=== PATIENT | female | born 1995 | race Caucasian/White ===

== ENCOUNTER 2021-09-10 13:15 | Inpatient (IN) | payer OTHER, SELFPAY ==
[2021-09-10] VITALS (73 sets, daily range): BP systolic 111–126; BP diastolic 53–86; PULSE 58–99; RESP 16–18; TEMP 36.4–37.1; O2SAT 94–100; BMI 31.8
--- NOTE | ~2021-09-10 | US_ITS ---
EXAMINATION: US OB limited w BPP DATE: 09/10/2021 14:15 INDICATION: Decelerations during third trimester TECHNIQUE: Real-time pelvic ultrasound was performed. The interpreting radiologist was not present fo r the study. COMPARISON: None. FINDINGS: There is a single living fetus in vertex presentation. The placenta is posterior/fundal. heart rate is 150 beats per minute (bpm). The amniotic fluid index is 11.7 cm which is normal Biophysical profile performed by the technologist: breathing (30 sec sustained breathing in 30 minutes): 2 out of 2 movement (3 gross body movements in 30 minutes): 2 out of 2 tone (one episode of [id number] limb movement): 2 out of 2 Amniotic fluid pocket (2 cm): 2 out of 2 Total score: 8 out of 8 IMPRESSION: 1. Single living fetus in vertex presentation. 2. Biophysical profile 8 out of 8. 3. Normal amniotic fluid index. Reviewed, dictated and finalized at location [facility]. [facility]
[2021-09-10 11:22] LABS: Basophils Percent Auto 0.3 % (0.2-1.2); Eosinophils Absolute Auto 0.3 K/mm3 (0-0.3); Hematocrit 31.9 % (37.0-47.0); Hemoglobin 10.6 g/dL (12.0-15.0); Immature Granulocyte Absolute 0.19 K/mm3 (0.00-0.031); Immature Granulocyte Percent A 1.4 % (0-0.5); Lymphocytes Absolute Auto 1.81 K/mm3 (0.9-3.2); Mean Corpuscular HGB Conc 33.2 g/dl (32-36); Mean Corpuscular Hemoglobin 31.5 pg (26-34); Mean Corpuscular Volume 94.9 fl (80-100); Mean Platelet Volume 11.9 fl (7.4-10.4); Monocytes Absolute Auto 1.2 K/mm3 (0.1-0.6); Monocytes Percent Auto 8.5 % (2.6-8.5); Neutrophils Absolute Auto 10.4 K/mm3 (1.3-6.7); Neutrophils Percent Auto 74.8 % (45.5-73.1); Platelet Count Result 210 k/mm3 (150-375); Red Blood Count 3.36 M/mm3 (4.2-5.4); Red Cell Distribution Width 14.9 % (11.5-14.5); White Blood Count 13.9 K/mm3 (4.5-10.0)
[2021-09-10 11:30] LABS: Creatinine Urine 67.9 mg/dL; Total Protein Urine Random 18 mg/dL; Ur Ttl Prot Creatinine Ratio 0.27 mg/mg (0-0.20)
[2021-09-10 11:32] LABS: Alanine Aminotransferase 11 U/L (4-35); Albumin Level 3.2 g/dL (3.5-5.1); Alkaline Phosphatase 104 U/L (38-126); Anion Gap 5 mmol/L (8-16); Aspartate Amino Transferase 18 U/L (14-36); Bilirubin,Total 0.2 mg/dL (0.2-1.3); Blood Urea Nitrogen 6 mg/dL (7-17); Calcium 9.2 mg/dL (8.4-10.2); Carbon Dioxide 21 mmol/L (22-30); Chloride 110 mmol/L (98-107); Estimated Glomerular Filt Rate > 60; Glucose 80 mg/dL (65-110); Sodium 136 mmol/L (137-145); Uric Acid 5.8 mg/dL (2.5-7.5)
[2021-09-10 11:36] LABS: Add Urine Microscopic? YES; Appearance Urine Cloudy (Clear); Bacteria Urine Trace /hpf; Bilirubin Urine Negative (Negative); Blood Urine Negative (Negative); Color Urine Yellow (Yellow); Glucose Urine UA Negative (Negative); Ketones Urine Negative (Negative); Leukocyte Esterase Ur Trace LEU/UL (NEGATIVE); Mucus Urine Rare /lpf; Nitrate Urine Negative (Negative); Protein Urine Negative (Negative); RBC Urine 0-2 /hpf (0-2); Specific Grav Ur 1.012 (1.001-1.035); Squamous Epithelial Cell Urine Few /hpf (Few); Urobilinogen Urine Negative mg/dL (<2.0)
[2021-09-10] MEDS: ACETAMINOPHEN 500 MG TABLET 1000 MG PO (12:13)
--- NOTE | 2021-09-10 13:15 | OBADM ---
This patient, Magda Childs, admitted to the OB room OB Post 115 for observation. Patient/family oriented to hospital policies and general routines including ID bracelet, bed and alarms, visiting hours, pain management, procedures, bathroom and other care routines, personal items, smoking policy, room service/diet, and visiting hours. Patient/Family are encouraged to report perceived risks to care and to ask questions if they do not understand what they are told or what they should do.
--- NOTE | 2021-09-10 17:57 | LDADM ---
This patient, Magda Childs, was admitted to Labor/Delivery/Recovery 102 on 09/10/21 at 17:57. Plans for labor, pain management and were discussed with patient. Patient/family oriented to hospital policies and general routines including ID bracelet, bed and alarms, visiting hours, pain management, procedures, bathroom and other care routines, personal items, smoking policy, room service/diet and guest tray routines, security routines, and visiting hours. Patient/Family are encouraged to report perceived risks to care and to ask questions if they do not understand what they are told or what they should do. See OBIX for further documentation.
--- NOTE | 2021-09-10 18:13 | PM.IMHP ---
H&P: HPI History of Present Illness Date/Time: 09/10/21 18:13 Chief Complaint: induction of labor Narrative: Magda is a G1 at 37.2 who presented for PI NAVA which was normal and BPs normalized. However, baby was noted to have 2 spontaneous prolonged decels, one to 60s and confirmed by RN at bedside. Other broken tracing, but strongly suspect decel again because pulse ox was on and it was not maternal. complicated by depression. Review of Systems Review of Systems: All systems reviewed & are unremarkable except as noted in HPI and below [facility] Family History Family History (Updated 08/30/21 @ 13:43 by Girish Sepulveda RN) Father Hypertension Chronic obstructive pulmonary disease Congestive heart failure Mother Hypertension Cervical cancer Social History Social History Substance use: current Last use: 08/27/21 Spiritual care concerns: No Meds Home Medications and Allergies Allergies Allergy/AdvReac Type Severity Reaction Status Date / Time No Known Allergies Allergy Verified 08/30/21 13:42 Vital Signs Vital Signs - 24 hr 09/10/21 11:07 09/10/21 11:15 09/10/21 11:30 Pulse Rate 73 82 75 Blood Pressure 123/79 124/86 123/85 Pulse Oximetry 09/10/21 11:45 09/10/21 12:00 09/10/21 13:02 Pulse Rate 73 69 Blood Pressure 120/82 124/82 Pulse Oximetry 100 09/10/21 13:07 09/10/21 14:03 09/10/21 14:08 Pulse Rate Blood Pressure Pulse Oximetry 100 100 100 09/10/21 14:13 09/10/21 14:18 09/10/21 14:23 Pulse Rate Blood Pressure Pulse Oximetry 100 100 99 09/10/21 14:24 09/10/21 14:30 09/10/21 14:35 Pulse Rate Blood Pressure Pulse Oximetry 100 100 100 09/10/21 14:40 09/10/21 14:45 09/10/21 14:50 Pulse Rate Blood Pressure Pulse Oximetry 100 100 100 09/10/21 14:55 09/10/21 15:00 09/10/21 15:05 Pulse Rate Blood Pressure Pulse Oximetry 100 100 100 09/10/21 15:09 09/10/21 15:14 09/10/21 15:19 Pulse Rate Blood Pressure Pulse Oximetry 100 100 100 09/10/21 15:24 09/10/21 15:28 09/10/21 15:29 Pulse Rate Blood Pressure Pulse Oximetry 100 100 100 09/10/21 15:32 09/10/21 15:35 09/10/21 15:39 Pulse Rate Blood Pressure Pulse Oximetry 100 100 99 09/10/21 15:41 09/10/21 15:46 09/10/21 15:51 Pulse Rate Blood Pressure Pulse Oximetry 100 100 99 09/10/21 15:54 09/10/21 15:59 09/10/21 16:04 Pulse Rate Blood Pressure Pulse Oximetry 99 99 98 09/10/21 16:09 09/10/21 16:14 09/10/21 16:19 Pulse Rate Blood Pressure Pulse Oximetry 98 98 97 09/10/21 16:24 09/10/21 16:29 09/10/21 16:34 Pulse Rate Blood Pressure Pulse Oximetry 97 97 97 09/10/21 16:39 09/10/21 16:44 09/10/21 16:49 Pulse Rate Blood Pressure Pulse Oximetry 97 96 96 09/10/21 16:54 09/10/21 16:59 09/10/21 17:04 Pulse Rate Blood Pressure Pulse Oximetry 95 94 99 09/10/21 17:09 09/10/21 17:14 09/10/21 17:19 Pulse Rate Blood Pressure Pulse Oximetry 99 99 99 09/10/21 17:24 09/10/21 17:29 09/10/21 17:34 Pulse Rate Blood Pressure Pulse Oximetry 99 97 99 09/10/21 17:39 09/10/21 17:44 09/10/21 17:49 Pulse Rate Blood Pressure Pulse Oximetry 99 99 99 09/10/21 17:54 09/10/21 17:59 Pulse Rate Blood Pressure Pulse Oximetry 99 99 Exam Const: General: no acute distress Resp: Effort & Inspection: normal respiratory effort Auscultation: clear to auscultation bilaterally Cardio: Rate: regular rate Rhythm: regular rhythm GI: GI Palp: Yes Soft to palpation Extrem: General: normal to inspection H&P: Results Labs Labs: Short CBC 09/10/21 Range/Units 11:10 WBC 13.9 H (4.5-10.0) K/mm3 Hgb 10.6 L (12.0-15.0) g/dL Hct 31.9 L (37.0-47.0) % Plt Count 210 (150-375) k/mm3 [facility] 09/10/21 11:10 Sodium 136 L Potassium 4.0 Chloride 110 H Carbon Dioxide 21 L BUN 6 L Creatinine 0.60 L Glucose
--- NOTE | 2021-09-10 18:57 | WPDANESEPP ---
Anes - Eval Pre Procedure Procedure: Labor epidural Date/Time: 09/10/21 18:57 Pre Op Diagnosis: Abd pain with contractions Patient Data Age: 26 Gender: F Height: 1.6 m Weight: 81.5 kg Last Vital Signs Pulse 69 09/10/21 12:00 BP 124/82 09/10/21 12:00 Pulse Ox 100 09/10/21 18:33 Allergies Allergy/AdvReac Type Severity Reaction Status Date / Time No Known Allergies Allergy Verified 08/30/21 13:42 Laboratory Tests 09/10/21 09/10/21 09/10/21 11:10 11:10 11:10 WBC 13.9 K/mm3 H K/mm3 (4.5-10.0) RBC 3.36 M/mm3 L M/mm3 (4.2-5.4) Hgb 10.6 g/dL L g/dL (12.0-15.0) Hct 31.9 % L % (37.0-47.0) MCV 94.9 fl fl (80-100) MCH 31.5 pg pg (26-34) MCHC 33.2 g/dl g/dl (32-36) RDW 14.9 % H % (11.5-14.5) Plt Count 210 k/mm3 k/mm3 (150-375) MPV 11.9 fl H fl (7.4-10.4) Immature Gran % (Auto) 1.4 % H % (0-0.5) Neut % (Auto) 74.8 % H % (45.5-73.1) Lymph % (Auto) 13.0 % L % (18.3-44.2) [place] % (Auto) 8.5 % % (2.6-8.5) Eos % (Auto) 2.0 % % (0-4.4) Baso % (Auto) 0.3 % % (0.2-1.2) Lymph # (Auto) 1.81 K/mm3 K/mm3 (0.9-3.2) [place] # (Auto) 1.2 K/mm3 H K/mm3 (0.1-0.6) Eos # (Auto) 0.3 K/mm3 K/mm3 (0-0.3) Baso # (Auto) 0.0 K/mm3 K/mm3 (0.0-0.1) Abs Immat Gran (auto) 0.19 K/mm3 H K/mm3 (0.00-0.031) Absolute Neuts (auto) 10.4 K/mm3 H K/mm3 (1.3-6.7) Absolute Nucleated RBC 0.0 K/mm3 K/mm3 (0.0-0.012) Nucleated RBC % 0.0 % % (0.0-0.2) Sodium Potassium Chloride Carbon Dioxide Anion Gap BUN Creatinine Estim Creat Clear Calc Estimated GFR Glucose Uric Acid Calcium Total Bilirubin AST ALT Alkaline Phosphatase Total Protein Albumin Urine Color Yellow (Yellow) Urine Appearance Cloudy H (Clear) Urine pH 7.0 (5.0-9.0) Ur Specific [place] 1.012 (1.001-1.035) Urine Protein Negative mg/dL mg/dL (Negative) Urine Glucose (UA) Negative mg/dL mg/dL (Negative) Urine Ketones Negative mg/dL mg/dL (Negative) Ur Blood (Man) Negative (Negative) Urine Nitrate Negative (Negative) Urine Bilirubin Negative (Negative) Urine Urobilinogen Negative mg/dL mg/dL (<2.0) Ur Leukocyte Esterase Trace VARUN/UL H VARUN/UL (NEGATIVE) Urine RBC 0-2 /hpf /hpf (0-2) Urine WBC 4-6 /hpf H /hpf (0-3) Ur Squamous Epith Cells Few /hpf /hpf (Few) Urine Bacteria Trace /hpf /hpf Urine Mucus Rare /lpf /lpf U Random Total Protein 18 mg/dL mg/dL Urine Creatinine 67.9 mg/dL mg/dL Protein/Creat Ratio 2 0.27 mg/mg H mg/mg (0-0.20) 09/10/21 11:10 WBC RBC Hgb Hct MCV MCH MCHC RDW Plt Count MPV Immature Gran % (Auto) Neut % (Auto) Lymph % (Auto) [place] % (Auto) Eos % (Auto) Baso % (Auto) Lymph # (Auto) [place] # (Auto) Eos # (Auto) Baso # (Auto) Abs Immat Gran (auto) Absolute Neuts (auto) Absolute Nucleated RBC Nucleated RBC % Sodium 136 mmol/L L mmol/L (137-145) Potassium 4.0 mmol/L mmol/L (3.4-5.0) Chloride 110 mmol/L H mmol/L (98-107) Carbon Dioxide 21 mmol/L L mmol/L (22-30) Anion Gap 5 mmol/L L mmol/L (8-16) BUN 6 mg/dL L mg/dL (7-17) Creatinine 0.60 mg/dL L mg/dL (0.7-1.0) Estim Creat Clear Calc Not Reportable Estimated GFR > 60 (59 - ) Glucose 80
[2021-09-10] MEDS: DINOPROSTONE 10 MG VAG INSERT VAGINAL (19:47)
[2021-09-10] MEDS: ZOLPIDEM TARTRATE (*CRX) 5 MG TABLET PO (22:01)
[2021-09-10 22:32] LABS: Amphetamine Screen Urine Negative (Negative); Barbiturate Screen Urine Negative (Negative); Benzodiazepines Screen Urine Negative (Negative); Cannabinoid Screen Urine Negative (Negative); Cocaine Screen Urine Negative (Negative); Methadone Screen Urine Negative (Negative); Opiate Screen Urine Negative (Negative); Phencyclidine Screen Urine Negative (Negative)
[2021-09-11] VITALS (185 sets, daily range): BP systolic 55–144; BP diastolic 35–98; PULSE 60–135; RESP 16–18; TEMP 36.8–38.1; O2SAT 82–100
[2021-09-11 07:12] LABS: Rapid Plasma Reagin Non-Reactive (NonReactive)
--- NOTE | 2021-09-11 08:40 | WPDOBADMIT ---
Obstetrics - Admit Note Admission Note: 26 y/o G1 initially sent over for ghtn evaluation and prior to discharge had a 4-5 minute decel. Decision was made to keep overnight for evaluation. Yesterday evening she had another deceleration and Dr Green made the decision to admit for induction of labor. Cervidil was done overnight and now pitocin will be started per protocol. Pt declines arom at this time and would like to wait a few hours. record reviewed. No pertinent additions to the history and/or any subsequent changes in the physical findings that are not consistent with the expected course of the were found. Additions to the history and/or subsequent changes in the physical findings follow. None.
[2021-09-11] MEDS: OXYTOCIN 30 UNITS/NS 500 ML 30 UNITS/500 ML BAG IV CONT (09:36)
[2021-09-11] MEDS: LACTATED RINGERS 1,000 ML 125 ML IV CONT ×3 (09:36→18:18)
--- NOTE | 2021-09-11 13:02 | PM.OBPNLAB ---
Pain Control Date/time seen: 09/11/21 13:02 VSS Cervix /-2 AROM moderate amount of clear odorless fluid
--- NOTE | 2021-09-11 13:02 | PM.IMHP ---
H&P: HPI History of Present Illness Date/Time: 09/11/21 13:02 Chief Complaint: Elevated blood pressure Review of Systems Review of Systems: All systems reviewed & are unremarkable except as noted in HPI and below Constitutional: Constitutional: Reports as per HPI and Reports no additional constitutional complaints Eyes: Eyes: Reports as per HPI ENT: Reports system reviewed and no additional complaints, except as documented Cardiovascular: Cardiovascular: Reports as per HPI Respiratory: Respiratory: Reports as per HPI Gastrointestinal: Gastrointestinal: Reports as per HPI Genitourinary: Genitourinary: Reports no additional female genitourinary complaints Musculoskeletal: Musculoskeletal: Reports no additional musculoskeletal complaints Integumentary/Breasts: Skin/Breast: Reports system reviewed and no additional complaints, except as docu Neurologic: Reports system reviewed and no additional complaints, except as documented Psychiatric: Psychiatric: Reports no additional psychiatric complaints Endocrine: Endocrine: Reports no additional endocrine complaints Hematologic/Lymphatic: Hematologic/Lymphatic: Reports no additional hematologic/lymphatic complaints Allergic/Immunologic: Allergic/Immunologic: Reports no additional allergic/immunologic complaints [facility] Past Medical History Medical History Overweight (BMI 25.0-29.9) and not yet delivered Family History Family History Father Hypertension Chronic obstructive pulmonary disease Congestive heart failure Mother Hypertension Cervical cancer Social History Social History Smoking packs per day: 0.5 Smoking cigarettes per day: 10.0 Years smoked: 12 Smoking pack-years: 6.00 Smoking status: Current every day smoker Tobacco type: cigarettes Substance use: current Spiritual care concerns: No Meds Home Medications and Allergies Home Medications Medication Instructions Recorded Confirmed Type ferrous sulfate 28 mg PO DAILY 09/10/21 09/10/21 History vit no.[id number] 1 tablet PO DAILY 09/10/21 09/10/21 History [Classic ] Allergies Allergy/AdvReac Type Severity Reaction Status Date / Time No Known Allergies Allergy Verified 08/30/21 13:42 Vital Signs Vital Signs - 24 hr 09/10/21 13:07 09/10/21 14:03 09/10/21 14:08 Temperature Pulse Rate Respiratory Rate Blood Pressure Pulse Oximetry 100 100 100 09/10/21 14:13 09/10/21 14:18 09/10/21 14:23 Temperature Pulse Rate Respiratory Rate Blood Pressure Pulse Oximetry 100 100 99 09/10/21 14:24 09/10/21 14:30 09/10/21 14:35 Temperature Pulse Rate Respiratory Rate Blood Pressure Pulse Oximetry 100 100 100 09/10/21 14:40 09/10/21 14:45 09/10/21 14:50 Temperature Pulse Rate Respiratory Rate Blood Pressure Pulse Oximetry 100 100 100 09/10/21 14:55 09/10/21 15:00 09/10/21 15:05 Temperature Pulse Rate Respiratory Rate Blood Pressure Pulse Oximetry 100 100 100 09/10/21 15:09 09/10/21 15:14 09/10/21 15:19 Temperature Pulse Rate Respiratory Rate Blood Pressure Pulse Oximetry 100 100 100 09/10/21 15:24 09/10/21 15:28 09/10/21 15:29 Temperature Pulse Rate Respiratory Rate Blood Pressure Pulse Oximetry 100 100 100 09/10/21 15:32 09/10/21 15:35 09/10/21 15:39 Temperature Pulse Rate Respiratory Rate Blood Pressure Pulse Oximetry 100 100 99 09/10/21 15:41 09/10/21 15:46 09/10/21 15:51 Temperature Pulse Rate Respiratory Rate Blood Pressure Pulse Oximetry 100 100 99 09/10/21 15:54 09/10/21 15:59 09/10/21 16:04 Temperature Pulse Rate Respiratory Rate Blood Pressure Pulse Oximetry 99 99 98 09/10/21 16
[2021-09-11] MEDS: fentaNYL CITRATE INJ (*CRX) 100 MCG/2 ML VIAL IV PUSH (14:07)
[2021-09-11] MEDS: AMPICILLIN 2 GM/NS 100 ML 2 GM/100 ML BAG IVPB (22:51)
[2021-09-12] VITALS (48 sets, daily range): BP systolic 110–149; BP diastolic 65–100; PULSE 67–112; RESP 16–18; TEMP 36.4–37.6; O2SAT 96–100
[2021-09-12] MEDS: LACTATED RINGERS 1,000 ML 125 ML IV CONT (00:27)
--- NOTE | 2021-09-12 02:44 | P.PCNOB_ITS ---
OB - Delivery Note Procedure Delivery date: 09/12/21 Procedure: Induction method: per pitocin protocol and per cervidil protocol Delivery monitor: external FHT, external uterine, internal FHT and internal uterine Route of delivery: Episiotomy description: None Laceration Description: Labial (1st degee right labial) Quantitative Blood Loss (ml): 128 Anesthesia type: Epidural Narrative: Mother and baby in stable condition. Cord gasses collected and handed off to staff. [place] Baby Date of : 09/12/21 Time of : 02:23 Weeks of gestation at delivery: 37 Weight (pounds): 5 Weight (ounces): 13 presentation: vertex position: Right Occiput Anterior Placenta delivery description: Spontaneous cord vessel description: Nuchal Cord (Unable to reduce. Delivered through.) score one minute: 8 score five minutes: 9
[2021-09-12] MEDS: OXYTOCIN 30 UNITS/NS 500 ML 30 UNITS/500 ML BAG 125 UNITS IV CONT (03:03)
[2021-09-12] MEDS: IBUPROFEN 600 MG TABLET PO ×2 (03:51→16:43)
[2021-09-12] MEDS: WITCH HAZEL 40 PADS 1 PAD TOPICAL (04:22)
[2021-09-12] MEDS: BENZOCAINE 20% AER SPR (*SP) 56 GM CAN 1 SPRAY TOPICAL (04:22)
--- NOTE | 2021-09-12 05:10 | PC.NURSE ---
0355 - Spoke with [facility] regarding order for Cosyntropin; no new orders received, will obtain orders from Dr Alan in am.
[2021-09-12] MEDS: COSYNTROPIN 0.25 MG/ML VIAL 1 MG IV PUSH (07:39)
[2021-09-12] MEDS: MULTIVIT/MIN/PREN/FOL AC/IRON TABLET 1 TAB PO (07:40)
[2021-09-12] MEDS: ACETAMINOPHEN 325 MG TABLET 650 MG PO ×2 (07:55→20:08)
--- NOTE | 2021-09-12 10:55 | PC.NURSE ---
Mother called out for assist with feeding. Mother reports infant is sleepy and makes eager attempts to latch with good bursts of nursing. Mother used a nipple shield for the first few feedings. Discussed establishing in the late infant may be more difficult due to their immaturity, infant may be less alert, have less stamina, and have greater difficulty with latch, suck, and swallow. ?s feeding may impact mother?s milk supply, pumping may need to be initiated until milk supply is well established and is able to effectively breastfeed without supplementation. Infant is able to freely thrust tongue past gum ridge and flange both lips. Skin is intact on both nipples, no redness and bruising noted. Nipple care reviewed of lanolin after feedings, warm compresses as needed. Discussed nipple shield use and how shield may assist with latch. Reviewed nipple shield precautions and possible complications. Instructions given on application and cleaning of shield. Patient able to return demonstration on proper application of shield. Discussed the need to initiate pumping if continues to nurse with the shield. Patient verbalizes understanding. Reviewed feeding cues, frequencies, duration of feedings, feeding elimination flow sheet, and signs of adequate intake. Demonstrated stimulation techniques to wake for feeding. Assisted with infant to breast without shield. Reviewed positioning/alignment in cross cradle, holding breast in ?U? hold and guided asymmetrical latch on. Reviewed rational for each. Infant was unable to latch correctly using nipple shield. Once latched made a weak effort to suckle with a few short draws and then fell asleep with nipple in mouth. stimulated to wake with to return to breast with same results. Discussed the difference of effective vs ineffective feeding. Reviewed is latching with good burst of suckling, he is not feeding consistently with adequate milk transfer at this time and continues to need to be supplement after . Feeding options discussed, Feeding Plan is for mother to put infant to breast each feeding for up to 15 minutes, then pace feed supplement 20 mls and pump for 10-15 minutes. Parents are comfortable with supplementation and pumping. If infant begins to nurse effectively with long draws and frequent swallowing noted, may decrease supplementation and discontinue pumping. Suggested mother have LC ship surveyor observe feeding before discontinuing supplementation. Discussed increasing supplementation as infant requires to satisfactions. Reviewed paced feeding and suggested to stop when is satisfied, as long as infant is having required output. With increased supplementation infant may not want to feed for 4 hours. Mother will continue to pump on feeding schedule and will increase session to 20 minutes if pumping every 4 hours.
--- NOTE | 2021-09-12 11:25 | PC.NURSE ---
Mother wishes to use her Ameda pump from home. Instructions given on breast pump care and usage, pumping schedule, nipple care, and collection and storage of breast milk. Encouraged [id number], breast massage and manual expression to stimulate supply. Assessed patient for correct flange size, placement and draw. Patient verbalizes and demonstrates understanding of instructions. Discussed colostrum vs milk supply and mother may not see more than a few drops the first few days, milk should transition in by day 3 and she may see more volume pumped per session.
[2021-09-12] MEDS: BENZOCAINE/MENTHOL (*BKC) 18 EA LOZENGE 1 LOZENGE PO (21:31)
[2021-09-12] MEDS: ALBUTEROL SULFATE (*SP) AEROSOL 1 PUFF 2 PUFF INHALATION (21:40)
[2021-09-13 05:14] LABS: Hemoglobin 8.7 g/dL (12.0-15.0)
[2021-09-13] MEDS: DOCUSATE SODIUM 100 MG CAPSULE PO ×2 (07:40→17:05)
[2021-09-13] MEDS: IBUPROFEN 600 MG TABLET PO ×2 (07:40→13:48)
[2021-09-13] MEDS: POLYSACCHARIDE IRON COMPLEX 150 MG CAPSULE PO ×2 (07:40→17:05)
[2021-09-13] MEDS: MULTIVIT/MIN/PREN/FOL AC/IRON TABLET 1 TAB PO (07:40)
[2021-09-13 08:35] VITALS: BP 120/84; PULSE 74; RESP 18; TEMP 37.6; O2SAT 99
--- NOTE | 2021-09-13 08:46 | PM.OBPNVD ---
OB - PN: Subj Subjective Date/time seen: 09/13/21 08:46 Patient comments: no complaints, pain well controlled, incisional pain, tolerating diet and flatus present OB - PN: Obj Data Labs CBC & Chem 7: 09/13/21 04:27 09/10/21 11:10 Labs: Laboratory Results - last 24 hr 09/13/21 04:27 Hgb 8.7 L Hct 26.0 L OB - PN A/P Plan day: 1 Plan: routine care Comments: No problems, routine care Time Spent With Patient Time: Total time spent is greater than 50% in coordination of care (as documented) at patient's floor/unit and/or counseling patient: Exam Const: General: comfortable, no acute distress and alert Resp: Effort & Inspection: normal respiratory effort Auscultation: no crackles, no rales and no rhonchi Cardio: Rate: regular rate Heart sounds: no click, no murmurs and no rubs GI: Inspection: non-distended GI Palp: No Tenderness to palpation present (GI) Auscultation: normal bowel sounds Other: Incision - CDI Extrem: General: normal to inspection, no pedal edema and no calf tenderness
--- NOTE | 2021-09-13 10:35 | PCCCNOTE ---
Care Coordination Note: Met with pt. and significant other Bennie. This is pt.'s first child. She lives at home alone. She has a supportive family including her parents and siblings. She has all necessary equipment for the baby including a crib, car seat, clothing, and bottles. 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 Pt. reports she will have to get some formula at discharge as she was anticipating breast feeding however she has not produced much milk. She is current with [facility] services and has information to call them at discharge. Pt. does not have a PMD, she is aware of how to obtain one. Encouraged pt. to also look into the [place] [employer] website as assistance. Pt. denies any further resources. Bennie will transport home.
[2021-09-13] MEDS: ACETAMINOPHEN 325 MG TABLET 650 MG PO (11:21)
--- NOTE | 2021-09-13 12:30 | PC.NURSE ---
Consult with pt., mother wishes to pump and bottle feed. Reviewed breast pump care and usage, pumping schedule, nipple care, and collection and storage of breast milk. Encouraged [id number], breast massage and manual expression to stimulate supply. Assessed patient for correct flange size, placement and draw. Patient verbalizes and demonstrates understanding of instructions. Discussed colostrum vs milk supply and mother may not see more than a few drops the first few days, milk should transition in by day 3 and she may see more volume pumped per session. Mother is feeding as required and waking infant to feed if needed. Mother states she feels confident to continue with current plan to pump and bottle feed EBM at home. Discussed to feed infant at least 20 mls per feeding, increasing supplementation as requires to satisfactions. Reviewed paced feeding and suggested to stop when is satisfied, as long as infant is having required output. With increased supplementation may not want to feed for 4 hours. Mother will continue to pump on feeding schedule and will increase session to 20 minutes if pumping every 4 hours. Reviewed transition to breast milk, signs of adequate intake, and engorgement/relief. Instructed to call ICP if intake/output less than required. Reviewed regular medications mother is taking. Information provided per Roxanne. Reviewed community resources on the [facility] website and in the Mom/Baby guide. Information on outpatient services provided. Mother has no further questions at this time.
[2021-09-13] MEDS: ALBUTEROL SULFATE (*SP) AEROSOL 1 PUFF 2 PUFF INHALATION ×2 (15:15→21:22)
--- NOTE | 2021-09-13 17:36 | PC.NURSE ---
Patient viewed the discharge video Mother & Baby Care, The First Two Weeks . Patient was given the opportunity and encouraged to ask questions. Patient verbalized understanding of information shared and has been given the mother/baby guide for home reference.
[2021-09-13 19:35] VITALS: BP 130/88; PULSE 65; RESP 16; TEMP 36.9; O2SAT 100
[2021-09-14] MEDS: ACETAMINOPHEN 325 MG TABLET 650 MG PO (05:47)
--- NOTE | 2021-09-14 08:30 | PC.NURSE ---
PT introductions made and plan of care discussed per post , pain management, breast pumping, bottle feeding, daily care activities and pending discharge to home. PT received such instructions per one to one discussion, mom baby care guide and demonstrations this shift. PT and significant other both recipients of such instructions and no barriers to learning identified at this time. PT verbalized understanding of such care.
[2021-09-14] MEDS: MULTIVIT/MIN/PREN/FOL AC/IRON TABLET 1 TAB PO (09:06)
[2021-09-14] MEDS: DOCUSATE SODIUM 100 MG CAPSULE PO (09:06)
[2021-09-14] MEDS: POLYSACCHARIDE IRON COMPLEX 150 MG CAPSULE PO (09:07)
[2021-09-14] MEDS: IBUPROFEN 600 MG TABLET PO (09:07)
[2021-09-14 09:30] VITALS: BP 130/87; PULSE 67; RESP 18; TEMP 37.1; O2SAT 100
--- NOTE | 2021-09-14 09:31 | PM.OBPNVD ---
OB - PN: Subj Subjective Date/time seen: 09/14/21 09:31 Patient comments: no complaints baby status: doing well [place] feeding status: breast and bottle feeding OB - PN: Obj Data Labs CBC & Chem 7: 09/13/21 04:27 09/10/21 11:10 OB - PN A/P Plan day: 2 Plan: routine care and discharge home Time Spent With Patient Time: Total time spent is greater than 50% in coordination of care (as documented) at patient's floor/unit and/or counseling patient: Time with patient: less than 15 minutes Exam Narrative: NAD abdomen soft, nontender, fundus firm below the umbilicus Extremities nontender, 1+ edema
--- NOTE | 2021-09-14 09:37 | PM.OBDSVD ---
DS: Admitting Diagnosis Discharge Date 09/14/21 Admitting Diagnosis IUP 37 weeks, decelerations DS: Discharge Diagnosis Discharge Diagnosis (1) , delivered: Code(s): O80 - Encounter for full-term uncomplicated delivery Status: Acute OB - DS: Summary Hospital Course Hospital Course: Patient was admitted for decelerations and term and had an uncomplicated induction and course. OB Procedures : Ultrasound OB Procedures Intrapartum: Spontaneous Vag Delivery OB Procedures: : None Peripartum Data Infant Delivery Method: Natural Vaginal Status at Discharge Functional status at discharge: independent ambulation Time Spent with Patient Time attestation: Total time spent providing and/or coordinating discharge services: DS: Data Data Completed and Pending Completed studies during hospitalization: Pending at discharge 09/12/21 02:31 Surgical [PTH] Routine Discharge Plan Discharge Attending physician on discharge: Anabela Green Discharging Clinician: Anabela Green Anticipated Discharge Date/Time: 09/14/21 11:00 Patient Disposition: Home, Self-Care Activity: may shower and pelvic rest Diet: regular Patient Instructions: Antibiotic Form Stand Alone Forms: General Discharge Information Follow-up/Referrals: Jese Hidalgo MD [Physician] - 4 Weeks Discharge Medications: Continued ferrous sulfate 28 mg iron Tablet 28 mg PO DAILY RF: 0 Classic 28 mg iron- 800 mcg Tablet 1 tablet PO DAILY RF: 0 Date of admission: 09/10/21 17:57 Primary Care Provider: PHYSICIAN,SURGICAL ELASTIC KNITTER Admitting Provider: Jese Hidalgo Attending physician on admission: Jese Hidalgo Condition: Stable
--- NOTE | 2021-09-14 13:30 | PC.NURSE ---
PT received discharge instructions per protocol and verbalized understanding of such care.
--- NOTE | 2021-09-14 14:00 | PC.NURSE ---
PT discharged to home ambulatory accompanied by significant other and to waiting car. follow up appts confirmed
== END 2021-09-14 14:00 | disposition home or self-care (01) | DRG 560 ==
LOC: ANHOBOP 13:18 → ANHOBPP 13:18 → ANHLDR 18:59 → ANHOB2 09-14 09:36 → ANHLDR 09-16 10:39 → ANHOB2 09-16 10:39
PROVIDERS: Advanced Practice Midwife; Admitting Provider Obstetrics & Gynecology; Visit Provider Obstetrics & Gynecology
DX: O75.2 Pyrexia during labor, not elsewhere classified (principal); O76 Abnormality in fetal heart rate and rhythm complicating labor and delivery; O99.334 Smoking (tobacco) complicating childbirth; F17.210 Nicotine dependence, cigarettes, uncomplicated; O69.1XX0 Labor and delivery complicated by cord around neck, with compression, not applicable or unspecified; O70.0 First degree perineal laceration during delivery; Z3A.37 37 weeks gestation of pregnancy; Z37.0 Single live birth
CPT/HCPCS: 36415; 76815; 76819; 80053; 80307; 81001; 82570; 84156; 84550; 85014; 85018; 85025; 86592; 86850; 86900; 86901; 87086; 88307; 94640; A9270; J0131; J0290; J0834; J2590; J2795; J3010; J7120

== ENCOUNTER 2023-10-28 00:41 | Observation (INO) | payer OTHER, MEDICAID, SELFPAY ==
[2023-10-28] VITALS (7 sets, daily range): BP systolic 79–117; BP diastolic 53–72; PULSE 72–83; BMI 32.8
[2023-10-28 01:32] LABS: Appearance Urine Cloudy (Clear); Bacteria Urine 1+ /hpf; Bilirubin Urine Negative (Negative); Blood Urine Negative (Negative); Color Urine Yellow (Yellow); Glucose Urine UA Negative (Negative); Ketones Urine Negative (Negative); Leukocyte Esterase Ur 1+ LEU/UL (Negative); Nitrate Urine Negative (Negative); Non Pathogenic Casts 0-2; Protein Urine Negative (Negative); RBC Urine 0-2 /hpf (0-2); Specific Grav Ur 1.012 (1.001-1.035); Squamous Epithelial Cell Urine Few /hpf (Few); Urobilinogen Urine 0.2 mg/dL (<2.0); pH Urine 6.5 (5.0-9.0)
--- NOTE | 2023-10-28 01:44 | PC.NURSE ---
[address] Currie at this time reported on maternal and status. Orders to call back when urine results were back and to get an update.
[2023-10-28 01:52] LABS: Add Urine Microscopic? YES
--- NOTE | 2023-10-28 02:28 | PC.NURSE ---
[address] Currie at this time. Reported on maternal and status. Orders received to give this patient a 500 bolus of LR and give this patient Keflex at this time. She wants the patient to go home with a 5day perscription of Keflex q6h 250mg. orders recieved to draw a CBC on this patinet at this time as well.
[2023-10-28] MEDS: LACTATED RINGERS 500 ML 999 ML IV CONT (02:50)
[2023-10-28] MEDS: CEPHALEXIN 250 MG CAPSULE PO (02:51)
[2023-10-28 03:01] LABS: Hematocrit 32.7 % (37.0-47.0); Hemoglobin 10.6 g/dL (12.0-15.0); Mean Corpuscular HGB Conc 32.4 g/dl (32-36); Mean Corpuscular Hemoglobin 30.9 pg (26-34); Mean Corpuscular Volume 95.3 fl (80-100); Mean Platelet Volume 10.8 fl (7.4-10.4); Platelet Count Result 254 k/mm3 (150-375); Red Blood Count 3.43 M/mm3 (4.2-5.4); Red Cell Distribution Width 13.5 % (11.5-14.5); White Blood Count 13.7 K/mm3 (4.5-10.0)
--- NOTE | 2023-10-28 03:47 | PC.NURSE ---
0337 This Rn talked to Dr. Currie at this time. Reported on maternal and status. orders given to dc this patient at this time
--- NOTE | 2023-10-28 03:59 | PC.NURSE ---
0141 Patient came to OB today because she was feeling tightening in her hips and belly. She said they felt like contractions but nothign to bad. Patient also felt some pain in her back when she voided. Patient gave a urine sample at this time and patient was hooked up to the monitors. patient stated she only drank less then half of a waterbottle today and drank 2-3 44oz cups of soda today. Patient given water at this time .
--- NOTE | 2023-10-30 10:44 | PM.OBTRLD ---
OB - Triage/Final Diagnosis Visit Information Comments/Additional reasons for admission: I have assessed the risk for this patient, Magda Childs, and determined that she would benefit from observation care. Evaluation Laboratory results: Laboratory Tests 10/28/23 10/28/23 01:21 02:34 WBC 13.7 H RBC 3.43 L Hgb 10.6 L Hct 32.7 L MCV 95.3 MCH 30.9 MCHC 32.4 RDW 13.5 Plt Count 254 MPV 10.8 H Urine Color Yellow Urine Appearance Cloudy H Urine pH 6.5 Ur Specific [place] 1.012 Urine Protein Negative Urine Glucose (UA) Negative Urine Ketones Negative Ur Blood (Man) Negative Urine Nitrate Negative Urine Bilirubin Negative Urine Urobilinogen 0.2 Leukocyte Esterase Rfl 1+ H Urine RBC 0-2 Urine WBC 11-20 H Ur Squamous Epith Cells Few Urine Bacteria 1+ H Urine Casts 0-2 Final Diagnosis (1) Back pain: Code(s): M54.9 - Dorsalgia, unspecified Status: Acute (2) UTI (urinary tract infection) during : Code(s): O23.40 - Unspecified infection of urinary tract in , unspecified trimester Status: Acute
== END 2023-10-28 03:50 | disposition home or self-care (01) ==
PROVIDERS: Admitting Provider Obstetrics & Gynecology; Visit Provider Obstetrics & Gynecology
DX: O99.891 Other specified diseases and conditions complicating pregnancy (principal); O23.43 Unspecified infection of urinary tract in pregnancy, third trimester; Z3A.33 33 weeks gestation of pregnancy
CPT/HCPCS: 36415; 59025; 81001; 85027; 87086; 87088; A9270; G0378; G0379; J7120

== ENCOUNTER 2023-10-29 22:52 | Observation (INO) | payer OTHER, MEDICAID, SELFPAY ==
[2023-10-29 23:05] VITALS: BMI 32.0
[2023-10-29 23:33] VITALS: BP 117/72; PULSE 103
[2023-10-29 23:40] VITALS: BP 117/71; PULSE 95; TEMP 37.1
--- NOTE | 2023-10-29 23:44 | PC.NURSE ---
MD called and made aware of pts arrival to unit. RN reported pts complaints of contractions (rating 7/10) that are 2-4 minutes apart, as well as SVE of closed, cat I tracing. RN advised MD that patient had been given abx for a UTI and currently reports that she is not taking the abx. Orders received. Pt ok to discharge after administration of medication and cessation of contractions.
[2023-10-29 23:50] VITALS: BP 115/70; PULSE 92
[2023-10-30] MEDS: NIFEdipine 30 MG TAB.ER.24 PO ×2 (00:09→01:48)
[2023-10-30] MEDS: NIFEdipine 10 MG CAPSULE PO (00:09)
[2023-10-30] MEDS: LACTATED RINGERS 500 ML 999 ML IV CONT (00:19)
--- NOTE | 2023-10-30 02:43 | PC.NURSE ---
[id number] TOCO 3-5.5 min 47-104 mild intensity soft to palpation FHR 135, accelerations present decelerations absent [id number] TOCO 4 min 57-87 seconds mild intensity soft to palpation FHR 135, accelerations present decelerations absent
--- NOTE | 2023-11-30 13:40 | PM.OBTRLD ---
OB - Triage/Final Diagnosis Visit Information Comments/Additional reasons for admission: I have assessed the risk for this patient, Magda Childs, and determined that she would benefit from observation care. Final Diagnosis (1) False labor: Code(s): O47.9 - False labor, unspecified Status: Acute
== END 2023-10-30 02:35 | disposition home or self-care (01) ==
PROVIDERS: Admitting Provider Obstetrics & Gynecology; Visit Provider Obstetrics & Gynecology
DX: O47.03 False labor before 37 completed weeks of gestation, third trimester (principal); Z3A.33 33 weeks gestation of pregnancy
CPT/HCPCS: 96374; A9270; G0378; G0379; J0696; J7120

== ENCOUNTER 2023-12-01 22:17 | Observation (INO) | payer OTHER, MEDICAID, SELFPAY ==
--- NOTE | 2023-12-01 23:50 | PC.NURSE ---
Updated Dr. Currie on pt, contractions, tracing, and cervical exam. Orders received to recheck and discharge pt if no change.
[2023-12-02 00:35] VITALS: BP 108/66; PULSE 96; TEMP 36.9; O2SAT 99; BMI 32.5
--- NOTE | 2023-12-02 00:37 | OBADM ---
This patient, Magda Childs, admitted to the OB room Labor/Delivery/Recovery 106 for observation. Patient/family oriented to hospital policies and general routines including ID bracelet, bed and alarms, visiting hours, pain management, procedures, bathroom and other care routines, personal items, smoking policy, room service/diet, and visiting hours. Patient/Family are encouraged to report perceived risks to care and to ask questions if they do not understand what they are told or what they should do.
== END 2023-12-02 00:33 | disposition home or self-care (01) ==
PROVIDERS: Admitting Provider Obstetrics & Gynecology; Visit Provider Obstetrics & Gynecology
DX: O47.1 False labor at or after 37 completed weeks of gestation (principal); Z3A.38 38 weeks gestation of pregnancy
CPT/HCPCS: G0378; G0379

== ENCOUNTER 2023-12-03 13:09 | Inpatient (IN) | payer OTHER, MEDICAID, SELFPAY ==
[2023-12-03] VITALS (11 sets, daily range): BP systolic 95–117; BP diastolic 39–68; PULSE 65–89; RESP 18; TEMP 36.3–37.2; O2SAT 99; BMI 32.0
--- NOTE | 2023-12-03 13:09 | LDADM ---
This patient, Magda Childs, was admitted to Labor/Delivery/Recovery 106 on 12/03/23 at 13:09. Plans for labor, pain management and were discussed with patient. Patient/family oriented to hospital policies and general routines including ID bracelet, bed and alarms, visiting hours, pain management, procedures, bathroom and other care routines, personal items, smoking policy, room service/diet and guest tray routines, infant security routines, and visiting hours. Patient/Family are encouraged to report perceived risks to care and to ask questions if they do not understand what they are told or what they should do. See OBIX for further documentation.
[2023-12-03] MEDS: OXYTOCIN 30 UNITS/NS 500 ML 30 UNITS/500 ML BAG 999 UNITS IV CONT (13:43)
--- NOTE | 2023-12-03 13:56 | WPDOBADMIT ---
Obstetrics - Admit Note Admission Note: record reviewed. No pertinent additions to the history and/or any subsequent changes in the physical findings that are not consistent with the expected course of the were found. Additions to the history and/or subsequent changes in the physical findings follow. pt admitted in labor SVE /-1, AROM large amount of clear, odorless fluid
--- NOTE | 2023-12-03 13:57 | P.PCNOB_ITS ---
OB - Vaginal Delivery Note Procedure Delivery date: 12/03/23 Induction method: None Delivery augmentation: Rupture of Membranes Delivery monitor: External FHT and External Uterine Route of delivery: Episiotomy description: None Laceration Description: None Specimen: No Quantitative Blood Loss (ml): 180 Anesthesia type: None Disposition: Floor Narrative: pt progressed quickly to complete, head delivered ARIANNA unable to deliver anterior shoulder, was able to rotate to OA and able to deliver the left arm, rest of baby delivered quickly. [place] Baby Date of : 12/03/23 Time of : 13:42 Weeks of gestation at delivery: 38 Infant gender: Female presentation: vertex position: Right Occiput Anterior Placenta delivery description: Spontaneous Cord Vessel Description: 3 Vessels score one minute: 4 score five minutes: 9 Narrative: baby at warmer after delivery, in stable condition
[2023-12-03] MEDS: fentaNYL CITRATE INJ (*CRX) 100 MCG/2 ML VIAL 50 MCG IV PUSH (14:00)
[2023-12-03 14:03] LABS: Basophils Absolute Auto 0.1 K/mm3 (0.0-0.1); Basophils Percent Auto 0.4 % (0.2-1.2); Eosinophils Absolute Auto 0.1 K/mm3 (0-0.3); Eosinophils Percent Auto 0.8 % (0-4.4); Hematocrit 35.7 % (37.0-47.0); Immature Granulocyte Absolute 0.09 K/mm3 (0.00-0.031); Immature Granulocyte Percent A 0.7 % (0-0.5); Lymphocytes Absolute Auto 2.38 K/mm3 (0.9-3.2); Lymphocytes Percent Auto 19.4 % (18.3-44.2); Mean Corpuscular HGB Conc 33.6 g/dl (32-36); Mean Corpuscular Hemoglobin 30.9 pg (26-34); Mean Platelet Volume 11.2 fl (7.4-10.4); Monocytes Absolute Auto 0.7 K/mm3 (0.1-0.6); Monocytes Percent Auto 5.6 % (2.6-8.5); Neutrophils Percent Auto 73.1 % (45.5-73.1); Platelet Count Result 295 k/mm3 (150-375); Red Blood Count 3.88 M/mm3 (4.2-5.4); Red Cell Distribution Width 14.3 % (11.5-14.5); White Blood Count 12.3 K/mm3 (4.5-10.0)
[2023-12-03] MEDS: OXYTOCIN 30 UNITS/NS 500 ML 30 UNITS/500 ML BAG 125 UNITS IV CONT (14:46)
[2023-12-03] MEDS: ACETAMINOPHEN 325 MG TABLET 650 MG PO ×2 (14:49→23:30)
[2023-12-03 15:45] LABS: Rapid Plasma Reagin Non-Reactive (NonReactive)
--- NOTE | 2023-12-03 16:00 | PC.NURSE ---
pt reports while getting up to the bathroom for the 1st time that she has right groin pain. RN to call Sadi Adame and update her.
--- NOTE | 2023-12-03 16:21 | OBPPTRN ---
Patient transferred to post room #281 via wheelchair. Support person present. Oriented to unit, room, information board, rooming in, admission packet and security measures. Patient verbalizes understanding.
[2023-12-03] MEDS: IBUPROFEN 600 MG TABLET PO ×2 (16:29→23:30)
--- NOTE | 2023-12-03 16:33 | PC.NURSE ---
Sadi Adame notifed that pt having right groin pain. CNM ordered 10mg Flexeril x 1 dose. No further orders at this time.
[2023-12-03] MEDS: CYCLOBENZAPRINE HCL 10 MG TABLET PO (19:12)
[2023-12-04 04:20] VITALS: BP 103/67; PULSE 56; RESP 18; TEMP 36.6
[2023-12-04 04:30] LABS: Hematocrit 32.6 % (37.0-47.0); Hemoglobin 10.5 g/dL (12.0-15.0)
[2023-12-04] MEDS: IBUPROFEN 600 MG TABLET PO (05:00)
--- NOTE | 2023-12-04 07:57 | PM.OBPNVD ---
OB - PN: Subj Subjective Date/time seen: 12/04/23 07:57 Interval history: pp day 1 some pubic symphysis pain, plan ibuprofen, ice, flexeril baby doing well pt desires d/c home OB - PN: Obj Data Labs 12/04/23 04:20 Labs: Laboratory Results - last 24 hr 12/03/23 12/04/23 13:55 04:20 WBC 12.3 H RBC 3.88 L Hgb 12.0 10.5 L Hct 35.7 L 32.6 L MCV 92.0 MCH 30.9 MCHC 33.6 RDW 14.3 Plt Count 295 MPV 11.2 H Immature Gran % (Auto) 0.7 H Neut % (Auto) 73.1 Lymph % (Auto) 19.4 [place] % (Auto) 5.6 Eos % (Auto) 0.8 Baso % (Auto) 0.4 Lymph # (Auto) 2.38 [place] # (Auto) 0.7 H Eos # (Auto) 0.1 Baso # (Auto) 0.1 Abs Immat Gran (auto) 0.09 H Absolute Neuts (auto) 9.0 H Absolute Nucleated RBC 0.0 Nucleated RBC % 0.0 RPR Non-reactive Blood Type A Positive Antibody Screen Negative OB - PN A/P Plan day: 1 Plan: routine care and discharge home Time Spent With Patient Time: Total time spent is greater than 50% in coordination of care (as documented) at patient's floor/unit and/or counseling patient: Review of Systems Review of Systems: All systems reviewed & are unremarkable except as noted in HPI and below Exam Const: General: cooperative and healthy appearing Resp: Effort & Inspection: normal respiratory effort Cardio: Rate: regular rate Skin: General skin exam: normal color Extrem: Right lower extremity: normal to inspection Left lower extremity: normal to inspection
--- NOTE | 2023-12-04 08:00 | P.DS_ITS ---
DS: Admitting Diagnosis Discharge Date 12/04/23 Admitting Diagnosis labor DS: Discharge Diagnosis Discharge Diagnosis (1) Vaginal delivery: Code(s): O80 - Encounter for full-term uncomplicated delivery Status: Acute OB - DS: Summary OB Procedures : None OB Procedures Intrapartum: Spontaneous Vag Delivery OB Procedures: : None Peripartum Data Laceration Description: None Episiotomy description: None Time Spent with Patient Time attestation: Total time spent providing and/or coordinating discharge services: DS: Data Data Completed and Pending Labs on day of discharge: Labs from last 24 hours 12/04/23 12/03/23 04:20 13:55 WBC 12.3 H RBC 3.88 L Hgb 10.5 L 12.0 Hct 32.6 L 35.7 L MCV 92.0 MCH 30.9 MCHC 33.6 RDW 14.3 Plt Count 295 MPV 11.2 H Immature Gran % (Auto) 0.7 H Neut % (Auto) 73.1 Lymph % (Auto) 19.4 [place] % (Auto) 5.6 Eos % (Auto) 0.8 Baso % (Auto) 0.4 Lymph # (Auto) 2.38 [place] # (Auto) 0.7 H Eos # (Auto) 0.1 Baso # (Auto) 0.1 Abs Immat Gran (auto) 0.09 H Absolute Neuts (auto) 9.0 H Absolute Nucleated RBC 0.0 Nucleated RBC % 0.0 RPR Non-reactive Blood Type A Positive Antibody Screen Negative Discharge Plan Discharge Attending physician on discharge: Jese Hidalgo Discharging Clinician: Shonda Adame Patient Disposition: Home, Self-Care Activity: pelvic rest Diet: regular Patient Instructions: Antibiotic Form Stand Alone Forms: General Discharge Information Follow-up/Referrals: Shonda Adame CNM [Certified Nurse On Car Supervisor] - 4 Weeks Discharge Medications: New ibuprofen 600 mg Tablet 600 mg PO Q6H PRN (Reason: Cramping) Qty: 30 0RF cyclobenzaprine 10 mg Tablet 10 mg PO Q8H PRN (Reason: Muscle Spasm) Qty: 20 0RF Continued ferrous sulfate 28 mg iron Tablet 28 mg PO DAILY Classic 28 mg iron- 800 mcg Tablet 1 tablet PO DAILY Date of admission: 12/03/23 13:09 Primary Care Provider: PHYSICIAN,SENIOR RESIDENT CARE DIRECTOR Admitting Provider: Jese Hidalgo Attending physician on admission: Jese Hidalgo Condition: Stable
[2023-12-04 08:13] VITALS: BP 95/64; PULSE 60; RESP 16; TEMP 36.2; O2SAT 100
[2023-12-04] MEDS: MULTIVIT/MIN/PREN/FOL AC/IRON TABLET 1 TAB PO (08:27)
[2023-12-04] MEDS: CYCLOBENZAPRINE HCL 10 MG TABLET PO ×2 (08:27→17:16)
[2023-12-04 11:12] VITALS: BP 97/56; PULSE 111; RESP 18; TEMP 36.3; O2SAT 100
--- NOTE | 2023-12-04 11:15 | PC.NURSE ---
Pt called me in and states that her head feels heavy and everything seems slow. I explained that it is probably the Flexeril medication that she took earlier and we discussed how muscle relaxers work. She verbalized understanding and will call if she experiences any new symptoms.
--- NOTE | 2023-12-04 14:52 | PC.NURSE ---
[id number] Introductions were made and Mother verbalizes she is able to independently latch with appropriate positioning and alignment. She denies any nipple discomfort and is responsively . Infant is currently meeting outcomes for weight, output, jaundice, blood sugar and feeding frequencies of 8-12 times in 24 hours. Mother declines any additional assistance or education at this time. Infants output is great. Mother is encouraged to call for assistance if her infant doesn?t latch, pain with latching, questions or concerns. Mother voiced understanding of information shared along with the feeding sheet and the mom/baby guide for an additional resource. Reported to the Primary RN.
[2023-12-04 23:45] VITALS: BP 112/59; PULSE 62; RESP 16; TEMP 37.1; O2SAT 100
[2023-12-05] MEDS: ACETAMINOPHEN 325 MG TABLET 650 MG PO (08:00)
[2023-12-05] MEDS: DOCUSATE SODIUM 100 MG CAPSULE PO (08:02)
[2023-12-05] MEDS: MULTIVIT/MIN/PREN/FOL AC/IRON TABLET 1 TAB PO (08:02)
[2023-12-05] MEDS: BENZOCAINE 20% AER SPR (*SP) 56 GM CAN 1 SPRAY TOPICAL (08:03)
[2023-12-05] MEDS: WITCH HAZEL 40 PADS 1 PAD TOPICAL (08:03)
--- NOTE | 2023-12-05 10:46 | PM.OBPNVD ---
OB - PN: Subj Subjective Date/time seen: 12/05/23 10:46 Interval history: pp day 1 some pubic symphysis pain, plan ibuprofen, ice, flexeril baby doing well pt desires d/c home Patient comments: no complaints, pain well controlled, incisional pain, tolerating diet and flatus present OB - PN: Obj Data Labs 12/04/23 04:20 OB - PN A/P Plan day: 1 Plan: routine care Comments: No problems, routine care Time Spent With Patient Time: Total time spent is greater than 50% in coordination of care (as documented) at patient's floor/unit and/or counseling patient: Exam Const: General: comfortable, no acute distress and alert Resp: Effort & Inspection: normal respiratory effort Auscultation: no crackles, no rales and no rhonchi Cardio: Rate: regular rate Heart sounds: no click, no murmurs and no rubs GI: Inspection: non-distended GI Palp: No Tenderness to palpation present (GI) Auscultation: normal bowel sounds Other: Incision - CDI Extrem: General: normal to inspection, no pedal edema and no calf tenderness
--- NOTE | 2023-12-05 10:47 | PM.OBDSVD ---
DS: Admitting Diagnosis Discharge Date December 05, 2023 Admitting Diagnosis term OB - DS: Summary OB Procedures : None OB Procedures Intrapartum: Spontaneous Vag Delivery OB Procedures: : None Peripartum Data Laceration Description: None Episiotomy description: None Time Spent with Patient Time attestation: Total time spent providing and/or coordinating discharge services: Discharge Plan Discharge Attending physician on discharge: Jese Hidalgo Discharging Clinician: Shonda Adame Patient Disposition: Home, Self-Care Activity: pelvic rest Diet: regular Patient Instructions: Antibiotic Form Stand Alone Forms: General Discharge Information Follow-up/Referrals: Shonda Adame, CNM [Certified Nurse Merchandise Adjustment Clerk] - 4 Weeks Discharge Medications: New ibuprofen 600 mg Tablet 600 mg PO Q6H PRN (Reason: Cramping) Qty: 30 0RF cyclobenzaprine 10 mg Tablet 10 mg PO Q8H PRN (Reason: Muscle Spasm) Qty: 20 0RF Continued ferrous sulfate 28 mg iron Tablet 28 mg PO DAILY Classic 28 mg iron- 800 mcg Tablet 1 tablet PO DAILY Date of admission: 12/03/23 13:09 Primary Care Provider: PHYSICIAN,MONOGRAM OPERATOR Admitting Provider: Jese Hidalgo Attending physician on admission: Jese Hidalgo Condition: Stable
--- NOTE | 2023-12-05 10:50 | PC.NURSE ---
0900Mother requests formula to feed infant. She states that she pumped breastmilk and fed through a bottle with her last child and wants to do that again. Instructed on amounts to feed baby, burping and time limit for formula to sit open after baby feeds from the bottle.
[2023-12-07 12:47] VITALS: BP 111/69; PULSE 69; RESP 18; TEMP 37.3; O2SAT 100
== END 2023-12-05 12:05 | disposition home or self-care (01) | DRG 807 ==
LOC: ANHLDR 14:01 → ANHOB2 16:23
PROVIDERS: Advanced Practice Midwife; Admitting Provider Obstetrics & Gynecology; Visit Provider Obstetrics & Gynecology
DX: O80 Encounter for full-term uncomplicated delivery (principal); Z37.0 Single live birth; Z3A.38 38 weeks gestation of pregnancy
CPT/HCPCS: 36415; 85014; 85018; 85025; 86592; 86850; 86900; 86901; A9270; G0378; G0379; J2590; J3010